=== PATIENT | male | born 1985 | race Caucasian/White ===

== ENCOUNTER 2017-03-28 08:18 | Emergency (ER) | payer OTHER ==
--- NOTE | 2017-03-28 08:47 | UC ---
Skin Complaint HPI - HPI Summary HPI Summary: boil left upper thigh x 2 days, + redness, swelling, tender, has been draining no fever, no chills, second abscess in the groin area, no draining , + swelling and tender - History of Current Complaint Chief Complaint: UCSkin Time Seen by Provider: 03/28/17 08:29 Stated Complaint: LEFT LEG SKIN COMPLAINT Hx Obtained From: Patient Onset/Duration: Gradual Onset, Lasting Days - 2, Still Present Timing: Constant Onset Severity: Moderate Current Severity: Moderate Location: Other - left upper thigh and groin area Character: Swelling, Pain, Redness, Painful Aggravating: Touch Alleviating: Nothing Associated Signs & Symptoms: Positive: Tenderness. 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 - Family History Known Family History: Positive: Cardiac Disease, Hypertension - Social History Alcohol Use: None Substance Use Type: None Substance Use Comment - Amount & Last Used: 3 weeks ago Smoking Status (MU): Current Some Day Smoker Type: Cigars Amount Used/How Often: 4 CIGARS PER WEEK Have You Smoked in the Last Year: Yes Physical Exam Triage Information Reviewed: Yes Appearance: Well-Appearing, No Pain Distress, Well-Nourished Vital Signs: Initial Vital Signs Temp 97.8 F 03/28/17 08:23 Pulse 71 03/28/17 08:23 Resp 16 03/28/17 08:23 BP 120/78 03/28/17 08:23 Pulse Ox 98 03/28/17 08:23 Vital Signs Reviewed: Yes Eyes: Positive: Conjunctiva Clear ENT: Positive: Normal ENT inspection, Hearing grossly normal, Pharynx normal Neck: Positive: Supple, Nontender, No Lymphadenopathy Respiratory: Positive: Chest non-tender, Lungs clear, Normal breath sounds Cardiovascular: Positive: RRR, No Murmur, Pulses Normal Abdominal Exam: Normal Skin: Positive: Other - + abscess left upper thigh , + bloody drainage, + erythema, tender, swollen sencond abscess groin area, swollen, hard, tenderness , no discharge Course/Dx - Diagnoses Provider Diagnoses: abscess upper left thigh. abscess groin Discharge - Discharge Plan Condition: Stable Disposition: HOME Prescriptions: Amoxicillin/Clavulanate TAB* [Augmentin TAB 875*] 875 mg PO BID #20 tab Sulfamethox/Trimethoprim DS* [Bactrim DS 800/160 TAB*] 1 tab PO BID #20 tab Patient Education Materials: Abscess (ED) Referrals: Momo Maurer DO [Primary Care Provider] - 5 Days Additional Instructions: keep the area clean , change the dressing daily warm compresses, Tylenol / ibuprofen as needed for pain follow up with your pcp in 5 days
[2017-03-28 08:52] VITALS: BP 120/78
== END 2017-03-28 08:59 | disposition home or self-care (01) ==
LOC: UCCORT 08:18
DX: L02.416 Cutaneous abscess of left lower limb (principal); L02.214 Cutaneous abscess of groin; Z88.6 Allergy status to analgesic agent; Z72.0 Tobacco use
CPT/HCPCS: 99212; G0463

== ENCOUNTER 2017-04-04 08:29 | Emergency (ER) | payer OTHER ==
[2017-04-04 08:45] VITALS: BP 105/69
[2017-04-04] MEDS ORDERED: Fluorescein Sodium TOPICAL* 1 MG TEST ONE (08:50)
[2017-04-04] MEDS ORDERED: BSS OPTH.SOL* BTL ONE (08:50)
[2017-04-04] MEDS ORDERED: Tetracaine 0.5% OPTH.SOL 4 ML* 1 DROP BTL ONE (08:51)
--- NOTE | 2017-04-04 09:43 | UC ---
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 HAD SLIGHT LEFT EYE IRRITATION AND FB SENSATION. WOKE UP SEVERAL TIMES OVERNIGHT DUE TO DISCOMFORT AND THIS MORNING EYE DISCOMFORT IS WORSE. DIFFICULT TO KEEP EYE OPEN. IS TEARING AND HAS SENSITIVITY TO LIGHT. NO KENT OR NAUSEA. DOES NOT HAVE A REGULAR EYE DOCTOR. - History of Current Complaint Chief Complaint: UCEye Stated Complaint: LEFT EYE COMPLAINT Time Seen by Provider: 04/04/17 09:12 Hx Obtained From: Patient Onset/Duration: Sudden Onset, Lasting Hours, Still Present Timing: Constant Severity Initially: Mild Severity Currently: Moderate Pain Intensity: 12 Pain Scale Used: 0-10 Numeric Location of Injury: Other - LEFT CORNEA Character: Foreign Body Sensation Aggravating Factor(s): Light, Blinking Alleviating Factor(s): Darkness Associated Signs And Symptoms: Positive: Photophobia, Drainage (Clear) - Allergies/Home Medications Allergies/Adverse Reactions: Allergies Allergy/AdvReac Type Severity Reaction Status Date / Time Ibuprofen AdvReac Unknown d/t Verified 03/28/17 08:22 epilepsy Home Medications: Home Medications Acetaminophen [Acetaminophen Extra Stren] 500 mg PO Q4H PRN 04/04/17 [History Confirmed 04/04/17] Divalproex DR TAB(*) [Depakote DR TAB(*)] 1,000 mg PO BID 04/04/17 [History Confirmed 04/04/17] lamoTRIgine TAB(*) [Lamictal TAB(*)] 200 mg PO BID 04/04/17 [History Confirmed 04/04/17] levETIRAcetam TAB* [Keppra TAB*] 1,000 mg PO BID 04/04/17 [History Confirmed ] PMH/Surg Hx/FS Hx/Imm Hx Previously Healthy: Yes - Surgical History Surgical History: Yes Surgery Procedure, Year, and Place: 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 - Family History Known Family History: Positive: Cardiac Disease, Hypertension - Social History Alcohol Use: None Substance Use Type: None Substance Use Comment - Amount & Last Used: 3 weeks ago Smoking Status (MU): Light Every Day Tobacco Smoker Type: Cigarettes Amount Used/How Often: 1/7 PPD Length of Time of Smoking/Using Tobacco: Since Age 17 Have You Smoked in the Last Year: Yes - Immunization History Most Recent Tetanus Shot: "I don't know." Review of Systems Constitutional: Negative Eyes: Drainage, Eye Redness, Photophobia, Other - FB SENSATION Respiratory: Negative Cardiovascular: Negative Gastrointestinal: Negative All Other Systems Reviewed And Are Negative: Yes Physical Exam Triage Information Reviewed: Yes Appearance: Well-Appearing, Well-Nourished, Pain Distress - MODERATE DUE TO LEFT EYE DISCOMFORT Vital Signs: Initial Vital Signs Temp 99.6 F 04/04/17 08:36 Pulse 56 04/04/17 08:36 Resp 16 04/04/17 08:36 BP 105/69 04/04/17 08:36 Pulse Ox 98 04/04/17 08:36 Vital Signs Reviewed: Yes Eyes: Positive: Conjunctiva Inflamed - LEFT EYE, Discharge - CLEAR TEARING LEFT EYE, Other: - CENTRALLY LOCATED PINPOINT FB NOTED LEFT CORNEA. ANOTHER FB AT 2 O 'CLOCK POSITION ENT: Positive: Hearing grossly normal Neck: Positive: Supple Respiratory: Positive: No respiratory distress, No accessory muscle use Cardiovascular: Positive: Pulses Normal Abdomen Description: Positive: Soft Musculoskeletal: Positive: No Edema Neurological: Positive: Alert Psychological: Positive: Age Appropriate Behavior Skin: Negative: rashes Eye Complaint Course/Dx - Course Course Of Treatment: TETRACAINE USED FOR LEFT EYE ANESTHESIA. 2 O'CLOCK FB SUCCESSFULLY REMOVED USING COTTON SWAB. UNABLE TO COMPLETELY REMOVE CENTRALLY LOCATED FB. [facility] CONTACTED BUT NO APPTS FOR NON-ESTABLISHED PTS. PT IS GOING TO GO TO [facility] ER FOR REMOVAL. - Differential Dx/Diagnosis Provider Diagnoses: 1. FOREIGN BODY LEFT CORNEA - REMOVED. 2. ADDITIONAL FOREIGN BODY LEFT CORNEA - RETAINED Discharge - Discharge Plan Condition: Stable Disposition: HOME Patient Education Materials: Eye Foreign Body (ED) Referrals: Ramsey Ross MD [Medical Doctor] - Momo Maurer DO [Primary Care Provider] - If Needed Additional Instructions: YOU HAD 2 FOREIGN BODIES IN YOUR LEFT CORNEA. ONE WAS SUCCESSFULLY REMOVED USING A COTTON SWAB. THE SECOND MORE CENTRALLY LOCATED ONE WAS NOT ABLE TO BE REMOVED. I WOULD RECOMMEND YOU GO DIRECTLY TO [facility] ER FOR REMOVAL OF THE FOREIGN BODY AND POSSIBLE EVALUATION BY OPHTHALMOLOGY IF NEEDED. FOLLOW-UP WITH [facility] AFTER REMOVAL IF INDICATED.
== END 2017-04-04 10:30 | disposition home or self-care (01) ==
LOC: UCCORT 08:29
DX: T15.02XA Foreign body in cornea, left eye, initial encounter (principal); X58.XXXA Exposure to other specified factors, initial encounter; Y93.9 Activity, unspecified; Y92.89 Other specified places as the place of occurrence of the external cause; Y99.0 Civilian activity done for income or pay; Z88.6 Allergy status to analgesic agent; F17.210 Nicotine dependence, cigarettes, uncomplicated
CPT/HCPCS: 65220; 99213; A9270-GY; G0463

== ENCOUNTER 2018-02-11 11:08 | Emergency (ER) | payer OTHER ==
[2018-02-11 12:31] VITALS: BP 115/76
--- NOTE | 2018-02-11 13:16 | UC ---
Laceration HPI - HPI Summary HPI Summary: 33 y/o male presents to the urgent care c/o laceration for his left arm and contusion in his RT lower leg w/ a metal at work around 1100am today. 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 Pain is 10/10 at touch and 8 /10 w/ movement. Bleeding stopped w/ pressure. Pt has his Tetanus vaccine 2 years ago. Pt walks w/ mild limping and his lower leg has swelling an bruising and in tender to touch. He has Decrease ROM of his RT ankle. Pt denies numbness or tingling over the arms of legs. Pt denies fever, SOB, calf pain, abdominal pain, SOB, chest pain, N/V/D. He has not taking anything for pain. He is allergic to ibuprofen. \ - History Of Current Complaint Chief Complaint: UCLowerExtremity Stated Complaint: WC-LAC ON LEFT ARM Time Seen by Provider: 02/11/18 13:15 Hx Obtained From: Patient Laceration Location: Arm - medial aspect of the left arm Mechanism Of Injury: Sharp Trauma Onset/Duration: Sudden Onset, Lasting Hours - 3hrs, Still Present Severity: Severe Pain Intensity: 9 Pain Scale Used: 0-10 Numeric Aggravating Factors: Movement, Other: - touch Related History: Dominant Hand Right - Allergies/Home Medications Allergies/Adverse Reactions: Allergies Allergy/AdvReac Type Severity Reaction Status Date / Time ibuprofen Allergy See Comment Verified 02/11/18 12:31 PMH/Surg Hx/FS Hx/Imm Hx Previously Healthy: Yes Neurological History: Seizures - Surgical History Surgical History: Yes Surgery Procedure, Year, and Place: 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 - Family History Known Family History: Positive: Cardiac Disease, Hypertension Family History: Dyslipidemia - Social History Occupation: Employed Full-time Lives: With Family Alcohol Use: None Substance Use Type: None Substance Use Comment - Amount & Last Used: denies Smoking Status (MU): Light Every Day Tobacco Smoker Type: Cigarettes Amount Used/How Often: 1/7 PPD Length of Time of Smoking/Using Tobacco: Since Age 17 Have You Smoked in the Last Year: Yes - Immunization History Most Recent Tetanus Shot: 2 years ago Hx Tetanus, Diphtheria Vaccination: Yes - 2 years ago Review of Systems Constitutional: Negative Skin: Bruising - RT lower leg s/p injury w/ swelling and pain, Other - medial aspect of RT arm laceration Eyes: Negative ENT: Negative Respiratory: Negative Cardiovascular: Negative Gastrointestinal: Negative Genitourinary: Negative Motor: Negative Neurovascular: Negative Musculoskeletal: Decreased ROM - RT ankle s/p injury at work, Other: - RT lower leg pain and RT ankle pain s/p injury, Left arm pain s/p laceration Neurological: Negative Psychological: Negative Is Patient Immunocompromised?: No All Other Systems Reviewed And Are Negative: Yes Physical Exam - Summary Physical Exam Summary: Vital Signs Reviewed: Yes General: well developed, well nourished thin male sitting in the examining table w/o any apparent distress Eye Exam: Normal Eyes: Positive: Conjunctiva Clear - PERRLA, EOMI, fundi grossly normal ENT: Positive: Normal ENT inspection, Hearing grossly normal, Pharynx normal, TMs normal Neck: Positive: Supple, Nontender, No Lymphadenopathy Respiratory: Positive: Chest non-tender, Lungs clear, Normal breath sounds, No respiratory distress Cardiovascular: Positive: RRR, No Murmur, Pulses Normal, Brisk Capillary Refill Abdomen Description: Positive: Nontender, No Organomegaly, Soft. Negative: CVA Tenderness (R), CVA Tenderness (L) Bowel Sounds: Positive: Present Musculoskeletal: - RT Ankle and RT lower leg : Pt is able to bear weight and ambulate w/ limping. The R ankle is without obvious asymmetry or deformity when compared to the L ankle. Decreased ROM due to pain. Mild swelling at the lateral malleolus, with tenderness to palpation. moderate ecchymosis bruising over the anterior aspect of the lower leg about 10cm x 3.0cm in size observed. Tenderness to palpation. No tenderness over the medial malleoulus or swelling observed. Talar tilt test is negative for ligament laxity to valgus or varus stress. Negative anterior drawer. Peroneal nerve is intact with strong eversion and plantar flexion. Positive sensation over the Rt foot and Rt ankle, positive pulses, capillary refill intact Neurological: Positive: Alert, Muscle Tone Normal Psychological Exam: Normal Skin: Positive:Medial aspect of LF arm with a superficial linear laceration about 4.8cm in size, bleeding stopped, w/ metal dust over skin, no foreign body observed. mild tenderness to palpation, mild ecchymosis laceration. FROM of LF arm, sensation intact, capillary refill brisk, and pulses WNL. Triage Information Reviewed: Yes Vital Signs: Initial Vital Signs Temp 97.2 F 02/11/18 12:26 Pulse 66 02/11/18 12:26 Resp 14 02/11/18 12:26 BP 115/76 02/11/18 12:26 Pulse Ox 95 02/11/18 12:26 Laceration Repair - Laceration Repair 1 Description: Linear Laceration Size After Repair: Length (cm) - 4.8cm in size Modified For Repair: No Type Injection: Local Anesthesia Used: 1.0% Lido - 3 ml and LET Cleansing Completed Via Routine Prep: Yes Irrigation With Pressure Irrigation Device: Yes Closure Material: Sutures - 11 Closure Method: Single Layer Suture Of: Skin, SQ Suture Type: Nylon - 5.0 Laceration Course/Dx - Course/Dx Course Of Treatment: 33 y/o male presents to the urgent care c/o laceration for his left arm and contusion in his RT lower leg w/ a metal at work around 1100am today. 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 Pain is 10/10 at touch and 8/10 w/ movement. Bleeding stopped w/ pressure. Pt has his Tetanus vaccine 2 years ago. Pt walks w/ mild limping and his lower leg has swelling an bruising and in tender to touch. He has Decrease ROM of his RT ankle. Pt denies numbness or tingling over the arms of legs. Pt denies fever, SOB, calf pain, abdominal pain, SOB, chest pain, N/V/D. He has not taking anything for pain. He is allergic to ibuprofen.Hx obtained. Pt a superficial laceration on the medial aspect of the LF arm about 4.8cm in size and a distal RT lower leg hematoma on examination. LACERATION PROCEDURE NOTE: Copious irrigation was done with saline and the wound explored. There was no FB or deep structure injury noted. Timeout performed with the nurse Jackie. The procedure was explained and consent obtained. LET ordered to topically anesthetize the laceration for the nurse to be able to remove al metals dust. After 15min area still not numbed. Lidocaine 1% ordered to anesthetize the area. Good anesthesia obtained with 3mL of 1% Lidocaine, Iodine applied around wound 3X. Sterile drape and prep were done There were 11 of sutures placed with 5.0 Nylon . The length of the wound after closure was 4.8 cm. No debridement done. Wound was covered with bacitracin and sterile non adherent dressing. The Pt tolerated the procedure well without adverse effects. Pt neurovascular intact. RT lower leg and RT ankle X-ray ordered. Imnpression negative for fracture, lateral mallelolus soft tissue swelling observed. Probably RT anckle sprain. Pt's ankle immobilized w/ alee bandage and a gel splint. Pt given crutches to avoid weight bearing. Pt and mother advised if signs of infection develop like fever, redness, pain to return to the urgent care or f/u with PCP for further treatment. Otherwise f/u suture removal in 10- 14 days.D/C instructions explained. Pt Rx bacitracin oint and Keflex Po since dirty wound. Pt and Mother understood and agreed w/ plan of care. Pt left the clinic ambulating w/ the help of the crutches. - Differential Dx - Laceration/Wound Differental Diagnoses: Abrasion, Fracture, Hematoma, Laceration, Puncture Wound , Tendon Laceration Provider Diagnoses: 1- Left arm laceration repair s/p inujry. 2-RT ankle pain and RT lower leg pain s/p injury. 3- RT lower leg hematoma Discharge - Sign-Out/Discharge Documenting (check all that apply): Discharge/Admit/Transfer - D/c home - Discharge Plan Condition: Stable Disposition: HOME Prescriptions: Acetaminophen TAB* [Tylenol TAB*] 650 mg PO Q6H PRN #30 tab PRN Reason: Pain Cephalexin CAP* [Keflex CAP*] 500 mg PO QID #28 cap Patient Education Materials: Ankle Sprain (ED), Care For Your Stitches (ED), Laceration (ED) Forms: *Work Release Referrals: Duncan Rolle MD [Medical Doctor] - 1 Week Momo Maurer DO [Primary Care Provider] - 1 Week Additional Instructions: 1-Please take full course of antibiotic to avoid resistance. 2- Keep wound clean and dry and avoid excessive movement w/ your left arm and RT ankle. Avoid heavy lifting. Use the crutches to avoid weight bearing. 3- F/u suture removal in 10-14 days w/ your PCP or here at the urgent care. 4-Take Tylenol PO q6-8hrs prn for pain or swelling. 5- If you develop fever or redness around your laceration despite the antibiotic please go to the ER immediately or return to the Urgent care. 6-Please f/u with Orthopedic Dr Rolle in 1 week is not improvement of symptoms for further evaluation and treatment. - Billing Disposition and Condition Condition: STABLE Disposition: Home
[2018-02-11] MEDS ORDERED: Lidocaine/Epineph/Tetraca SOL* (LET solution) 4 ML BTL TOPICAL ONE (13:49)
[2018-02-11] MEDS ORDERED: Lidocaine/Epineph/Tetraca SOL* (LET solution) 4 ML BTL ONE (13:49)
[2018-02-11] MEDS ORDERED: Lidocaine 1%* 5 ML VIAL INJ ONE (14:09)
[2018-02-11] MEDS ORDERED: Lidocaine 1%* 5 ML VIAL ONE (14:16)
[2018-02-11] MEDS ORDERED: Acetaminophen TAB* 325 MG PO ONE (14:55)
--- NOTE | 2018-02-11 15:33 | RAD ---
INDICATION: Right lower extremity injury COMPARISON: None TECHNIQUE: AP and lateral views were obtained. FINDINGS: The bony structures, joint spaces, and soft tissues are normal for age. IMPRESSION: NEGATIVE EXAMINATION.
--- NOTE | 2018-02-11 15:40 | RAD ---
INDICATION: Right ankle injury COMPARISON: None TECHNIQUE: AP, lateral, and oblique views were obtained. FINDINGS: There is lateral soft tissue swelling. There is no acute fracture or dislocation. IMPRESSION: LATERAL SOFT TISSUE SWELLING.
== END 2018-02-11 16:20 | disposition home or self-care (01) ==
LOC: UCCORT 11:08
DX: S41.112A Laceration without foreign body of left upper arm, initial encounter (principal); S80.11XA Contusion of right lower leg, initial encounter; M25.571 Pain in right ankle and joints of right foot; M79.661 Pain in right lower leg; W20.8XXA Other cause of strike by thrown, projected or falling object, initial encounter; Y93.89 Activity, other specified; Y92.69 Other specified industrial and construction area as the place of occurrence of the external cause; Y99.0 Civilian activity done for income or pay; F17.210 Nicotine dependence, cigarettes, uncomplicated; Z88.6 Allergy status to analgesic agent
CPT/HCPCS: 12002; 99213; A9270-GY; G0463

== ENCOUNTER 2018-02-21 11:58 | Emergency (ER) | payer OTHER ==
[2018-02-21 13:14] VITALS: BP 111/74
--- NOTE | 2018-02-21 14:01 | UC ---
HPI Wound/Suture Re-check - HPI Summary HPI Summary: Patient to urgent care today to have sutures removed from his left forearm. Patient sustained a laceration at work on some steel 10 days ago. Patient reports wound is healing well no pain redness swelling discharge. 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 - Family History Known Family History: Positive: Cardiac Disease, Hypertension Family History: Dyslipidemia - Social History Occupation: Employed Full-time Lives: With Family Alcohol Use: None Substance Use Type: None Substance Use Comment - Amount & Last Used: denies Smoking Status (MU): Former Smoker Type: Cigarettes Amount Used/How Often: 1/7 PPD Length of Time of Smoking/Using Tobacco: Since Age 17 Have You Smoked in the Last Year: Yes When Did the Patient Quit Smoking/Using Tobacco: 10/2017 - Immunization History Most Recent Tetanus Shot: 2 years ago Hx Tetanus, Diphtheria Vaccination: Yes - 2 years ago Review of Systems Constitutional: Negative Skin: Negative, Other - heeling wound left upper arm no pain redness swelling streaking fever chills or drainage. Wound well approximated Eyes: Negative ENT: Negative Respiratory: Negative Cardiovascular: Negative Gastrointestinal: Negative Genitourinary: Negative Motor: Negative Neurovascular: Negative Musculoskeletal: Negative Neurological: Negative Psychological: Negative Is Patient Immunocompromised?: No All Other Systems Reviewed And Are Negative: Yes Physical Exam Triage Information Reviewed: Yes Appearance: Well-Appearing, No Pain Distress, Well-Nourished Vital Signs: Initial Vital Signs Temp 98.4 F 02/21/18 13:08 Pulse 63 02/21/18 13:08 Resp 13 02/21/18 13:08 BP 111/74 02/21/18 13:08 Pulse Ox 100 02/21/18 13:08 Vital Signs Reviewed: Yes Eye Exam: Normal Eyes: Positive: Conjunctiva Clear ENT Exam: Normal ENT: Positive: Normal ENT inspection, Hearing grossly normal. Negative: TMs normal, Trismus, Muffled voice, Hoarse voice Dental Exam: Normal Neck exam: Normal Neck: Positive: Supple, Nontender Respiratory Exam: Normal Respiratory: Positive: Chest non-tender, No respiratory distress, No accessory muscle use Cardiovascular Exam: Normal Cardiovascular: Positive: RRR, No Murmur, Pulses Normal, Brisk Capillary Refill Musculoskeletal Exam: Normal Musculoskeletal: Positive: Strength Intact, ROM Intact, No Edema Neurological Exam: Normal Neurological: Positive: Alert, Muscle Tone Normal Psychological Exam: Normal Psychological: Positive: Normal Response To Family, Age Appropriate Behavior Skin Exam: Normal Skin: Positive: Other - Wound on left arm is well approximated no drainage sutures in place sutures Course/Dx - Course Course Of Treatment: sutures removed steri strips applied, 1 cm at center of wound appromimated with steristrips - Differential Dx - Laceration/Wound Provider Diagnoses: suture removal, healing wound Discharge - Sign-Out/Discharge Documenting (check all that apply): Discharge/Admit/Transfer - Discharge Plan Condition: Stable Disposition: HOME Patient Education Materials: Steristrips (ED), Stitches Removal (ED) Referrals: Momo Maurer DO [Primary Care Provider] - If Needed - Billing Disposition and Condition Condition: STABLE Disposition: Home
== END 2018-02-21 14:07 | disposition home or self-care (01) ==
LOC: UCCORT 11:58
DX: S51.812D Laceration without foreign body of left forearm, subsequent encounter (principal); W26.8XXD Contact with other sharp object(s), not elsewhere classified, subsequent encounter; Z88.6 Allergy status to analgesic agent; Z87.891 Personal history of nicotine dependence; Z82.49 Family history of ischemic heart disease and other diseases of the circulatory system; Z83.49 Family history of other endocrine, nutritional and metabolic diseases

== ENCOUNTER 2019-03-19 15:00 | Emergency (ER) | payer OTHER, MEDICARE ==
[2019-03-19 15:44] VITALS: BP 112/64
--- NOTE | 2019-03-19 16:00 | UC ---
Back Pain HPI - HPI Summary HPI Summary: C/O upper middle back pain after lifting his this morning ~ 11 AM. Pain is sharp with movement. Better with rest. - History of Current Complaint Chief Complaint: UCBackPain Stated Complaint: BACK PAIN Hx Obtained From: Patient Onset/Duration: Sudden Onset, Lasting Hours - 5, Still Present Timing: Constant Severity Initially: Severe Severity Currently: Severe Pain Intensity: 15 Back Pain: Is Discrete @ - mid thoracic Character: Sharp, Aching Aggravating Factor(s): Movement, Bending Alleviating Factor(s): Rest, Position Associated Signs And Symptoms: Negative: Fever, Weakness, Numbness, Tingling, Abdominal Pain, Flank Pain, Bladder Incontinence, Bowel Incontinence - Allergies/Home Medications Allergies/Adverse Reactions: Allergies Allergy/AdvReac Type Severity Reaction Status Date / Time ibuprofen Allergy See Comment Verified 02/21/18 13:10 PMH/Surg Hx/FS Hx/Imm Hx Previously Healthy: Yes - Surgical History Surgical History: Yes Surgery Procedure, Year, and Place: 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 - Family History Known Family History: Positive: Cardiac Disease, Hypertension Family History: Dyslipidemia - Social History Occupation: Employed Full-time Lives: With Family Alcohol Use: None Substance Use Type: None Substance Use Comment - Amount & Last Used: denies Smoking Status (MU): Former Smoker Type: Cigarettes Amount Used/How Often: 1/7 PPD Length of Time of Smoking/Using Tobacco: Since Age 17 Have You Smoked in the Last Year: Yes When Did the Patient Quit Smoking/Using Tobacco: 10/2017 - Immunization History Most Recent Tetanus Shot: 2 years ago Hx Tetanus, Diphtheria Vaccination: Yes - 2 years ago Review of Systems All Other Systems Reviewed And Are Negative: Yes Musculoskeletal: Positive: Arthralgia - middle back. Is Patient Immunocompromised?: No Physical Exam Triage Information Reviewed: Yes Appearance: Well-Appearing, Pain Distress - moderate, Thin Vital Signs: Initial Vital Signs Temp 97.7 F 03/19/19 15:37 Pulse 59 03/19/19 15:37 Resp 16 03/19/19 15:37 BP 112/64 03/19/19 15:37 Pulse Ox 98 03/19/19 15:37 Vital Signs Reviewed: Yes Eyes: Positive: Conjunctiva Clear Neck exam: Normal Respiratory Exam: Normal - splinting respiration. Cardiovascular Exam: Normal Musculoskeletal: Positive: ROM Limited @ - thoracic spine., Other: - Tender on the spinous process around T8/T9. No paraspinal muscle tenderness. Neurological Exam: Normal Psychological Exam: Normal Skin Exam: Normal Diagnostics - Radiology No standard instances Radiology Interpretation Completed By: Radiologist Summary of Radiographic Findings: No acute changes Back Pain Course/Dx - Differential Dx/Diagnosis Differential Diagnosis/HQI/PQRI: Arthritis, Fracture, Herniated Disc, Strain Provider Diagnosis: Acute thoracic back pain Discharge - Sign-Out/Discharge Documenting (check all that apply): Patient Departure All imaging exams completed and their final reports reviewed: Yes - Discharge Plan Condition: Stable Disposition: HOME Prescriptions: Cyclobenzaprine TAB* [Flexeril 10 MG TAB*] 10 mg PO TID PRN #30 tab PRN Reason: Pain - Back Ketorolac TAB * [Toradol TAB *] 10 mg PO Q6H #20 tab Patient Education Materials: Back Pain (ED), Ketorolac (By injection), Cyclobenzaprine (By mouth) Forms: *Work Release Referrals: Momo Maurer DO [Primary Care Provider] - - Billing Disposition and Condition Condition: STABLE Disposition: Home
[2019-03-19] MEDS ORDERED: Cyclobenzaprine TAB* 10 MG PO ONE (16:15)
[2019-03-19] MEDS ORDERED: Ketorolac INJ* 60 MG/2 ML VIAL IM ONE (16:21)
== END 2019-03-19 16:46 | disposition home or self-care (01) ==
LOC: UCCORT 15:00
DX: M54.6 Pain in thoracic spine (principal); X50.0XXA Overexertion from strenuous movement or load, initial encounter; Y93.89 Activity, other specified; Y92.9 Unspecified place or not applicable; Z87.891 Personal history of nicotine dependence
CPT/HCPCS: 72070; 96372; 99212; A9270-GY; G0463; J1885

== ENCOUNTER 2019-04-20 10:44 | Emergency (ER) | payer MEDICARE, OTHER ==
[2019-04-20 11:08] VITALS: BP 115/77
[2019-04-20] MEDS ORDERED: Fluorescein Sodium TOPICAL* 1 MG TEST STRIP OPHTHALMIC ONE (11:10)
[2019-04-20] MEDS ORDERED: Tetracaine 0.5% OPTH.SOL 4 ML* 1 DROP BTL LEFT EYE ONE (11:10)
[2019-04-20] MEDS ORDERED: Tobramycin 0.3% OPHTH.SOL* 5 ML BOT (regular eye drops) LEFT EYE ONE (11:44)
--- NOTE | 2019-04-20 11:48 | UC ---
Eye Complaint HPI - HPI Summary HPI Summary: 34-year-old male comes in with a chief complaint of left eye pain and drainage. Approximately a week ago he had an onset of left eye pain and clear drainage. He does not specifically recall getting a foreign body in the eye. Gradually the course of several days improved until about 2 days ago he was completely pain-free. Last evening when he was showering he got some soap in his left eye and the pain returned. Overnight the pain has continued. No complaint of any vision loss no complaint of any pus. The eye has been tearing clear tears. He was glasses does not wear contacts. - History of Current Complaint Chief Complaint: UCEye Stated Complaint: LEFT EYE COMPLAINT Time Seen by Provider: 04/20/19 11:01 Pain Intensity: 7 - Allergies/Home Medications Allergies/Adverse Reactions: Allergies Allergy/AdvReac Type Severity Reaction Status Date / Time ibuprofen Allergy See Comment Verified 04/20/19 11:02 PMH/Surg Hx/FS Hx/Imm Hx Previously Healthy: Yes Neurological History: Seizures - S/P TBI - Surgical History Surgical History: Yes Surgery Procedure, Year, and Place: 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 - Family History Known Family History: Positive: Cardiac Disease, Hypertension Family History: Dyslipidemia - Social History Alcohol Use: None Substance Use Type: None Substance Use Comment - Amount & Last Used: denies Smoking Status (MU): Former Smoker Type: Cigarettes Amount Used/How Often: 1/7 PPD Length of Time of Smoking/Using Tobacco: Since Age 17 Have You Smoked in the Last Year: Yes When Did the Patient Quit Smoking/Using Tobacco: 10/2017 - Immunization History Most Recent Tetanus Shot: 2 years ago Hx Tetanus, Diphtheria Vaccination: Yes - 2 years ago Review of Systems All Other Systems Reviewed And Are Negative: Yes Constitutional: Positive: Negative Skin: Positive: Negative Eyes: Positive: Drainage, Photophobia, Other - SEE HPI ENT: Positive: Negative Respiratory: Positive: Negative Cardiovascular: Positive: Negative Gastrointestinal: Positive: Negative Motor: Positive: Negative Neurovascular: Positive: Negative Musculoskeletal: Positive: Negative Neurological: Positive: Negative Psychological: Positive: Negative Is Patient Immunocompromised?: No Physical Exam Triage Information Reviewed: Yes Appearance: Well-Appearing, Well-Nourished, Pain Distress - MILD Vital Signs: Initial Vital Signs Temp 98.2 F 08/07/19 11:03 Pulse 64 04/20/19 11:03 Resp 16 04/20/19 11:03 BP 115/77 04/20/19 11:03 Pulse Ox 100 04/20/19 11:03 Vital Signs Reviewed: Yes Eyes: Positive: Other: - Left eye has scleral injection. PERRLA EOMI. On fluorescein stain exam after applying tetracaine there is fluorescein uptake with a 1 mm dark foreign body at 6:00 over the iris. No hyphema. The foreign body appears to be superficial. I attempted to remove it using a cotton-tipped applicator and I was unable to remove it. Neck: Positive: Supple Respiratory: Positive: No respiratory distress Musculoskeletal: Positive: Strength Intact, ROM Intact Neurological: Positive: Alert, Muscle Tone Normal Psychological: Positive: Age Appropriate Behavior Skin Exam: Normal Eye Complaint Course/Dx - Course Course Of Treatment: I was unable to remove the foreign body here in clinic. We are starting tobramycin antibiotic eyedrops and the patient follow-up ophthalmology. - Differential Dx/Diagnosis Provider Diagnosis: Foreign body of left eye Discharge - Sign-Out/Discharge Documenting (check all that apply): Patient Departure All imaging exams completed and their final reports reviewed: No Studies - Discharge Plan Condition: Stable Disposition: HOME Patient Education Materials: Eye Foreign Body (ED) Referrals: Momo Maurer DO [Primary Care Provider] - Sydni Escoto MD [Medical Doctor] - Hever Ni MD [Medical Doctor] - [facility] [Provider Group] Vini Sawyer MD [Medical Doctor] - Additional Instructions: FOLLOW UP WITH OPHTHALMOLOGY FOR YOUR LEFT EYE FOREIGN BODY. CALL TODAY TO ARRANGE A FOLLOW UP APPOINTMENT SOON POSSIBLE. GET REEVALUATED SOONER IF WORSE OR ANY QUESTIONS OR CONCERNS. - Billing Disposition and Condition Condition: STABLE Disposition: Home
== END 2019-04-20 12:07 | disposition home or self-care (01) ==
LOC: UCCORT 10:44
DX: T15.92XA Foreign body on external eye, part unspecified, left eye, initial encounter (principal); X58.XXXA Exposure to other specified factors, initial encounter; Y92.9 Unspecified place or not applicable; Z87.891 Personal history of nicotine dependence
CPT/HCPCS: 99212; A9270-GY; G0463